=== PATIENT | female | born 1935 | race Caucasian/White ===

== ENCOUNTER 2017-04-19 13:22 | Emergency (ER) | payer MEDICARE ==
[~2017-04-19] VITALS: Ht 157.5 cm; Wt 72.9 kg
[~2017-04-19 13:22] MED LIST: ALBU0.086 INH; ASPI81TA82 PO; CARB100S PO; CEPH500C3 PO; HYDR-2768 PO; LEVO125T3 PO; MEDR4PAK3 PO; MULTCAP13 PO; PERC7.5T13 PO; PRED20 PO; PROC60TA PO; TRAZ50TA4 PO; ULTR50TA PO; VENTAER INH
[2017-04-19 13:30] VITALS: BP 212/96; PULSE 89; RESP 16; TEMP 97.2; O2SAT 92
[2017-04-19] MEDS ORDERED: NIFE60TA8 PO (13:46)
[2017-04-19] MEDS ORDERED: HYDR25TA5 PO (13:46)
[2017-04-19] MEDS ORDERED: ATOR20TA15 PO (13:46)
[2017-04-19] MEDS ORDERED: LEVO.125 PO (13:46)
[2017-04-19] MEDS ORDERED: BENZ100 PO (14:13)
[2017-04-19] MEDS ORDERED: TRAM50 PO (14:14)
--- NOTE | 2017-04-19 14:14 | PD ---
HPI Chief Complaint: Musculoskeletal Complaint Time Seen by Provider: 13:38 Travel History International Travel<30 days: No Contact w/Intl Traveler<30days: No Traveled to known affect area: No History of Present Illness HPI 82-year-old female with history of chronic left hip pain secondary to arthritis presents with increased pain the last 3 days. She denies recent injury or trauma. She reports the pain is similar to previous flares. She denies fever, back pain, bowel or bladder incontinence, or seizure weakness of the extremity. Reports the pain is unrelieved by lidocaine patches and OTC Tylenol Motrin. Symptom severity is moderate. PFSH Past Medical History Anxiety: No Depression: Yes Cardiovascular Problems: No Diminished Hearing: No Hypertension: Yes Immune Disorder: No Implanted Vascular Access Dvce: Yes Musculoskeletal: No Neurologic: No Psychiatric: Yes ("NERVES") Reproductive: No Respiratory: Yes (BRONCHITIS) Thyroid Disease: Yes Influenza Vaccination: No ?: Not Menopausal: Yes Past Surgical History Abdominal Surgery: No Cardiac Surgery: No Ear Surgery: No Endocrine Surgery: No Eye Surgery: No Genitourinary Surgery: Yes (KIDNEY REMOVAL ) Gynecologic Surgery: Yes (5 BIRTHS) Joint Replacement: Yes (BILAT KNEES) Oral Surgery: No Thoracic Surgery: No Other Surgery: Yes Social History Alcohol Use: Yes (OCC) Tobacco Use: No Substance Use: No Allergies-Medications (Allergen,Severity, Reaction): Coded Allergies: erythromycin base (Unverified Allergy, Intermediate, Dehydration, 04/19/17 ) Reported Meds & Prescriptions Reported Meds & Active Scripts Active Ultram (Tramadol HCl) 50 Mg Tab 50 Mg PO Q6H PRN Tessalon Perles (Benzonatate) 100 Mg Cap 100 Mg PO TID PRN 5 Days Reported Atorvastatin (Atorvastatin Calcium) 20 Mg Tab 20 Mg PO HS Nifedipine ER 24 HR (Nifedipine) 60 Mg Tab 1 Tab PO DAILY Hydrochlorothiazide 25 Mg Tab 25 Mg PO DAILY Synthroid (Levothyroxine Sodium) 125 Mcg Tab 125 Mcg PO DAILY Review of Systems General / Constitutional: No: Fever HENT: No: Headaches Cardiovascular: No: Chest Pain or Discomfort Respiratory: No: Shortness of Breath Gastrointestinal: No: Abdominal Pain Genitourinary: No: Dysuria Physical Exam Narrative GENERAL: Well-nourished, well-developed patient. SKIN: Focused skin assessment warm/dry. HEAD: Normocephalic. EYES: No scleral icterus. No injection or drainage. NECK: Supple, trachea midline. No JVD or lymphadenopathy. CARDIOVASCULAR: Regular rate and rhythm without murmurs, gallops, or rubs. RESPIRATORY: Breath sounds equal bilaterally. No accessory muscle use. GASTROINTESTINAL: Abdomen soft, non-tender, nondistended. MUSCULOSKELETAL: Direct pain with palpation over the left lateral hip. The patient has pain with passive flexion of the hip. Minimal discomfort with internal rotation but no pain with external rotation of the right hip. Distal sensation is intact. 2+ dorsalis pedis pulses present bilaterally. No cyanosis , or edema. BACK: No pain with palpation of the right-sided lumbar paraspinal musculature. Cervical, thoracic, lumbar spine nontender. No CVA tenderness. Data Data Last Documented VS Vital Signs Date Time Temp Pulse Resp B/P (MAP) Pulse Ox O2 Delivery O2 Flow Rate FiO2 04/19/17 13:30 97.2 89 16 212/96 (134) 92 Orders Orders Ed Discharge Order (04/19/17 14:15) Ketorolac Inj (Toradol Inj) (04/19/17 14:30) [facility] Medical Decision Making Medical Screen Exam Complete: Yes Emergency Medical Condition: Yes Differential Diagnosis Arthritis, hip sprain/strain, unlikely hip fracture Narrative Course 82 old female with history of chronic pain in both hips presents for increased pain the left hip 3 days. Pain is unrelieved with her usual pain medication regimen of lidocaine patches, Tylenol, Motrin. She denies trauma or injury. She is ambulatory. Her exam is consistent with acute flare of her chronic hip pain likely caused by her arthritis. I Do not suspect fracture. Upon discharge I was asked by family members to evaluate her cough. Patient reports she's had a mild URI for the last several days. She denies fever, chills, chest pain, shortness of breath. She is requesting something for her cough which is keeping her up at night. Diagnosis Primary Impression: Left hip pain Additional Impression: URI (upper respiratory infection) Qualified Codes: J06.9 - Acute upper respiratory infection, unspecified Referrals: Orthopedist Additional Instructions: Take the pain medication as prescribed. Follow-up with your primary doctor for recheck. Return to emergency department if he developed new or worsening symptoms Scripts Tramadol (Ultram) 50 Mg Tab 50 MG PO Q6H Y for PAIN, #12 TAB 0 Refills Prov: Elder Brooke MD 04/19/17 Benzonatate (Tessalon Perles) 100 Mg Cap 100 MG PO TID Y for COUGH for 5 Days, CAP 0 Refills Prov: Ilene Benson 04/19/17 Disposition: 01 DISCHARGE HOME Condition: Stable Ilene Benson Apr 19, 2017 14:14
[2017-04-19] MEDS ORDERED: KETOROLAC TROMETHAMINE 60 MG/2 ML (IM) VIAL IM ONE (14:30)
== END 2017-04-19 14:46 | disposition home or self-care (01) ==
LOC: PHEFT 13:22
DX: M25.552 Pain in left hip (principal); G89.29 Other chronic pain; J06.9 Acute upper respiratory infection, unspecified; I10 Essential (primary) hypertension
CPT/HCPCS: 96372; 99284; J1885

== ENCOUNTER 2017-04-27 13:01 | Inpatient (IN) | payer MEDICARE ==
[~2017-04-27] VITALS: Ht 162.6 cm; Wt 73.6 kg
[2017-04-27] VITALS (9 sets, daily range): BP systolic 120–157; BP diastolic 70–95; PULSE 58–82; RESP 16–20; TEMP 97.6–98; O2SAT 87–99
[~2017-04-27 13:01] MED LIST changes: -ALBU0.086 INH; -ASPI81TA82 PO; +ATOR20TA15 PO; +BENZ100 PO; -CARB100S PO; -CEPH500C3 PO; -HYDR-2768 PO; +HYDR25TA5 PO; +LEVO.125 PO; -LEVO125T3 PO; -MEDR4PAK3 PO; -MULTCAP13 PO; +NIFE60TA8 PO; -PERC7.5T13 PO; -PRED20 PO; -PROC60TA PO; +TRAM50 PO; -TRAZ50TA4 PO; -ULTR50TA PO; -VENTAER INH
--- NOTE | 2017-04-27 13:46 | PD ---
HPI Chief Complaint: Respiratory Distress Time Seen by Provider: 13:46 Travel History International Travel<30 days: No Contact w/Intl Traveler<30days: No Traveled to known affect area: No History of Present Illness HPI 82-year-old female came to the emergency room brought by her daughter with history of shortness of breath that's progressively worsening for past 3 days. Patient also complains of this dry cough. This morning the daughter took her to patient's primary care physician and it was noticed that her oxygen saturation there was 89% on room air. Patient generally does not require oxygen at home. She was given an albuterol nebulizer treatment at the primary care's office and then she was asked to come to the emergency room. Patient denies of any chest pain. As per the patient and her daughter she has history of bronchitis once to twice a year every year and this felt like her bronchitis. No history of fever or chills. Patient does not have history of COPD. She does not have a cable tool operator and never had a coronary artery disease workup in the past. Patient's oxygen saturation in triage was 87% on room air. [facility] Past Medical History Narrative Medical List of her past medical, surgical, social and family history is reviewed from the nursing note. Anxiety: No Depression: Yes Cardiovascular Problems: No Diminished Hearing: No Hypertension: Yes Immune Disorder: No Implanted Vascular Access Dvce: Yes Musculoskeletal: No Neurologic: No Psychiatric: Yes ("NERVES") Reproductive: No Respiratory: Yes (BRONCHITIS) Thyroid Disease: Yes Menopausal: Yes Past Surgical History Abdominal Surgery: No Cardiac Surgery: No Ear Surgery: No Endocrine Surgery: No Eye Surgery: No Genitourinary Surgery: Yes (KIDNEY REMOVAL ) Gynecologic Surgery: Yes (5 BIRTHS) Joint Replacement: Yes (BILAT KNEES) Oral Surgery: No Thoracic Surgery: No Other Surgery: Yes Social History Alcohol Use: Yes (OCC) Tobacco Use: No Substance Use: No Allergies-Medications (Allergen,Severity, Reaction): Coded Allergies: erythromycin base (Verified Allergy, Intermediate, Dehydration, 04/27/17) Comments List of her allergies reviewed from the nursing note. Reported Meds & Prescriptions Reported Meds & Active Scripts Active Reported Atorvastatin (Atorvastatin Calcium) 20 Mg Tab 20 Mg PO HS Hydrochlorothiazide 25 Mg Tab 25 Mg PO DAILY Synthroid (Levothyroxine Sodium) 125 Mcg Tab 125 Mcg PO DAILY Narrative Medication List of her home medications reviewed from the nursing note. Review of Systems Except as stated in HPI: all other systems reviewed are Neg Respiratory: Positive: Cough, Shortness of Breath Physical Exam Narrative GENERAL: Awake, alert, elderly, moderate distress SKIN: Focused skin assessment warm/dry. HEAD: Atraumatic. Normocephalic. EYES: Pupils equal and round. No scleral icterus. No injection or drainage. ENT: No nasal bleeding or discharge. Mucous membranes pink and moist. NECK: Trachea midline. No JVD. CARDIOVASCULAR: Regular rate and rhythm. No murmur appreciated. RESPIRATORY: No accessory muscle use. Coarse rhonchi in the right basilar area GASTROINTESTINAL: Abdomen soft, non-tender, nondistended. Hepatic and splenic margins not palpable. MUSCULOSKELETAL: No obvious deformities. No clubbing. No cyanosis. No edema. NEUROLOGICAL: Awake and alert. No obvious cranial nerve deficits. Motor grossly within normal limits. Normal speech. PSYCHIATRIC: Appropriate mood and affect; insight and judgment normal. Data Data Last Documented VS Vital Signs Date Time Temp Pulse Resp B/P (MAP) Pulse Ox O2 Delivery O2 Flow Rate FiO2 04/27/17 14:31 58 20 141/70 (93) 99 04/27/17 14:23 Nasal Cannula 2.00 04/27/17 13:09 97.6 Orders Orders Complete Blood Count With Diff (04/27/17 14:00) Basic Metabolic Panel (Bmp) (04/27/17 14:00) B-Type Natriuretic Peptide (04/27/17 14:00) Troponin I (04/27/17 14:00) Iv Access Insert/Monitor (04/27/17 14:00) Electrocardiogram (04/27/17 14:00) Ecg Monitoring (04/27/17 14:00) Oximetry (04/27/17 14:00) Oxygen Administration (04/27/17 14:00) Chest, Single Ap (04/27/17 14:00) Sodium Chloride 0.9% Flush (Ns Flush) (04/27/17 14:00) Methylprednisolone So Succ Inj (Solumedr (04/27/17 14:00) Albuterol-Ipratropium Neb (Duoneb Neb) (04/27/17 14:00) Furosemide Inj (Lasix Inj) (04/27/17 15:15) Admit Order (Ed Use Only) (04/27/17 15:25) Labs Laboratory Tests Test 04/27/17 14:20 White Blood Count 10.4 TH/MM3 Red Blood Count 4.21 MIL/MM3 Hemoglobin 12.3 GM/DL Hematocrit 36.4 % Mean Corpuscular Volume 86.4 FL Mean Corpuscular Hemoglobin 29.3 PG Mean Corpuscular Hemoglobin Concent 33.9 % Red Cell Distribution Width 13.2 % Platelet Count 243 TH/MM3 Mean Platelet Volume 8.3 FL Neutrophils (%) (Auto) 73.8 % Lymphocytes (%) (Auto) 14.0 % Monocytes (%) (Auto) 8.5 % Eosinophils (%) (Auto) 2.9 % Basophils (%) (Auto) 0.8 % Neutrophils # (Auto) 7.6 TH/MM3 Lymphocytes # (Auto) 1.5 TH/MM3 Monocytes # (Auto) 0.9 TH/MM3 Eosinophils # (Auto) 0.3 TH/MM3 Basophils # (Auto) 0.1 TH/MM3 CBC Comment DIFF FINAL Differential Comment Blood Urea Nitrogen 29 MG/DL Creatinine 1.60 MG/DL Random Glucose 113 MG/DL Calcium Level 8.6 MG/DL Sodium Level 132 MEQ/L Potassium Level 4.0 MEQ/L Chloride Level 93 MEQ/L Carbon Dioxide Level 33.2 MEQ/L Anion Gap 6 MEQ/L Estimat Glomerular Filtration Rate 31 ML/MIN Troponin I 0.17 NG/ML B-Type Natriuretic Peptide 681 PG/ML MDM Medical Decision Making Medical Screen Exam Complete: Yes Emergency Medical Condition: Yes Medical Record Reviewed: Yes Interpretation(s) Twelve-lead EKG was reviewed by me. Normal sinus rhythm, normal axis, interventricular conduction delay, bradycardia. Heart rate of 58 bpm. Differential Diagnosis Pneumonia, bronchitis, COPD exacerbation, CHF Narrative Course 3:29 PM blood test results of back and patient's troponin and BNP are mildly elevated. Patient has some renal insufficiency as well. Chest x-ray has been read by the radiologist as mild interstitial edema. I had initially given the patient to duo nebs and IV Solu-Medrol. However based on these test results I have ordered for 40 mg of IV Lasix. Patient needs to be evaluated by the cable tool operator. She does not have any active chest pain. However given the hypoxia, congestive heart failure and elevated troponin she should be transferred to the main hospital in case of the cable tool operator chooses to do a catheterization. I discussed this with the hospitalist who agreed. I also discussed this with the patient and her daughter and informed them about the test results. I answered all the questions to the best of my ability. Critical Care Narrative Aggregate critical care time was 30 minutes. Time to perform other separately billable procedures was not included in the critical care time. My time did not include minutes spent treating any other patients simultaneously or on activities that did not directly contribute to the patient's treatment. The services I provided to this patient were to treat and/or prevent clinically significant deterioration that could result in: Hypoxia, respiratory distress, non-STEMI, congestive heart failure I provided critical care services requiring my management, as noted below: Chart data review, documentation time, medication orders and management, vital sign assessments/reviewing monitor data, ordering and reviewing lab tests, ordering and interpreting/reviewing x-rays and diagnostic studies, care of the patient and discussion of the patient with the admitting physicians. Procedures EKG Prior to Arrival: No Diagnosis Primary Impression: Non-STEMI (non-ST elevated myocardial infarction) Additional Impressions: Congestive heart failure Qualified Codes: I50.9 - Heart failure, unspecified Respiratory distress Hypoxia Renal insufficiency Admitting Information Admitting Physician Requests: [place] Prasad MD Apr 27, 2017 13:46
[2017-04-27] MEDS ORDERED: SODIUM CHLORIDE 0.9% FLUSH 10 ML FLUSH IVF PRN (14:00)
[2017-04-27] MEDS ORDERED: methylPREDNISolone SOD SUCC 125 MG/2 ML VIAL IV PUSH ONE (14:00)
[2017-04-27] MEDS: RESP: ALBUTEROL 2.5 MG/IPRATROPIUM 0.5 MG NEB (SCH) INH (14:21)
[2017-04-27 14:33] LABS: AUTOMATED NEUTROPHIL # 7.6 TH/MM3 (1.8-7.7); BASOPHIL # 0.1 TH/MM3 (0-0.2); BASOPHIL % 0.8 % (0.0-2.0); EOSINOPHIL # 0.3 TH/MM3 (0-0.4); EOSINOPHIL % 2.9 % (0.0-4.0); HEMATOCRIT 36.4 % (35.0-46.0); HEMO FLAGS DIFF FINAL; LYMPHOCYTE # 1.5 TH/MM3 (1.0-4.8); MEAN CELL VOLUME 86.4 FL (80.0-100.0); MEAN CORPUSCULAR HEMOGLOBIN 29.3 PG (27.0-34.0); MEAN CORPUSCULAR HGB CONC 33.9 % (32.0-36.0); MONO % 8.5 % (0.0-8.0); NEUT % 73.8 % (16.0-70.0); PLATELET COUNT 243 TH/MM3 (150-450); RED BLOOD COUNT 4.21 MIL/MM3 (4.00-5.30); RED CELL DISTRIBUTION WIDTH 13.2 % (11.6-17.2); WHITE BLOOD COUNT 10.4 TH/MM3 (4.0-11.0)
[2017-04-27 14:45] LABS: BICARBONATE 33.2 MEQ/L (21.0-32.0)
--- NOTE | 2017-04-27 14:53 | RADRPT ---
EXAM DATE/TIME: 04/27/2017 14:37 [facility] COMPARISON: CHEST PA & LAT, April 21, 2015, 17:06. INDICATIONS : Cough and shortness of breath. MEDICAL HISTORY : Hypertension. Afib. SURGICAL HISTORY : Appendectomy. Cholecystectomy. ENCOUNTER: Initial ACUITY: 4 - 6 days PAIN SCORE: 0/10 LOCATION: Bilateral chest FINDINGS: A single portable frontal view the chest shows interstitial prominence in the lungs ilaterally. This is new from the prior study. No intraalveolar opacity. No effusions. Heart is mildly enlarged. No sig nificant pulmonary vascular engorgement observed. A scoliotic and degenerative spine. CONCLUSION: Bilateral interstitial infiltrates with mild cardiomegaly. This could relate to early interstitial pu lmonary edema. Corby Black Jr., MD on April 27, 2017 at 14:47 Board Certified Radiologist. This report was verified electronically.
[2017-04-27] MEDS ORDERED: FUROSEMIDE 40 MG/4 ML VIAL IV PUSH ONE (15:15)
--- NOTE | 2017-04-27 15:54 | HHI.HP ---
HPI Service [facility] Primary Care Physician Rad Zuluaga, DO Admission Diagnosis non-STEMI, CHF, hypoxia Diagnoses: (1) New onset of congestive heart failure (2) Elevated troponin I level (3) Non-STEMI (non-ST elevated myocardial infarction) (4) Renal insufficiency (5) Hypoxia (6) Respiratory distress Chief Complaint: Shortness of breath Travel History International Travel<30 Days: No Contact w/Intl Traveler <30 Da: No Traveled to Known Affected Are: No History of Present Illness 82-year-old female with a history of hypertension, hypothyroidism, presented to the ED for evaluation of worsening symptoms or shortness of breath associated with dry cough without any chest pain since , 04/23/17. Patient was not seen by her PCP until today 04/28/17 when she was found to have oxygen saturation of 89% on room air patient states, despite albuterol nebulizer treatment at her PCP's office she did not have significant improvement and was sent to the ED for further evaluation. Checks x-ray ordered revealed evidence of pulmonary edema with patient having a BNP of 681 and elevated cardiac enzyme of 0.17. She denies any febrile episode, GI bleeding. Review of Systems Except as stated in HPI: all other systems reviewed are Neg Past Family Social History Past Medical History Depression: Yes Hypertension: Yes Respiratory: Yes (BRONCHITIS) Thyroid Disease: Yes History of right trigeminal neuralgia Past Surgical History Genitourinary Surgery: Yes (KIDNEY REMOVAL ) Gynecologic Surgery: Yes (5 BIRTHS) Joint Replacement: Yes (BILAT KNEES) Reported Medications Atorvastatin (Atorvastatin Calcium) 20 Mg Tab 20 Mg PO HS Hydrochlorothiazide 25 Mg Tab 25 Mg PO DAILY Synthroid (Levothyroxine Sodium) 125 Mcg Tab 125 Mcg PO DAILY Allergies: Coded Allergies: erythromycin base (Verified Allergy, Intermediate, Dehydration, 04/27/17) Family History Mother from complication of dementia, had NE when she was alive in her 80s Brothers with diabetes type 2 Social History Alcohol Use: Yes (OCC) Tobacco Use: No Substance Use: No Physical Exam Vital Signs Vital Signs Date Time Temp Pulse Resp B/P (MAP) Pulse Ox O2 Delivery O2 Flow Rate FiO2 04/27/17 14:31 58 20 141/70 (93) 99 04/27/17 14:23 96 04/27/17 14:23 Nasal Cannula 2.00 04/27/17 14:20 99 Nasal Cannula 2.00 04/27/17 13:43 Nasal Cannula 2.00 04/27/17 13:09 97.6 72 20 138/95 (109) 87 Physical Exam GENERAL: This is a well-nourished, well-developed patient, in no apparent distress. SKIN: No rashes, ecchymoses or lesions. Cool and dry. HEAD: Atraumatic. Normocephalic. No temporal or scalp tenderness. EYES: Pupils equal round and reactive. Extraocular motions intact. No scleral icterus. No injection or drainage. ENT: Nose without bleeding, purulent drainage or septal hematoma. Throat without erythema, tonsillar hypertrophy or exudate. Uvula midline. Airway patent. NECK: Trachea midline. No JVD or lymphadenopathy. Supple, nontender, no meningeal signs. CARDIOVASCULAR: Regular rate and rhythm without murmurs, gallops, or rubs. RESPIRATORY: Clear to auscultation. Breath sounds equal bilaterally. + wheezes GASTROINTESTINAL: Abdomen soft, non-tender, nondistended. No hepato-splenomegaly , or palpable masses. No guarding. MUSCULOSKELETAL: Extremities without clubbing, cyanosis, or edema. No joint tenderness, effusion, or edema noted. No calf tenderness. Negative Homans sign bilaterally. NEUROLOGICAL: Awake and alert. Cranial nerves II through XII intact. Motor and sensory grossly within normal limits. Five out of 5 muscle strength in all muscle groups. Normal speech. Laboratory Laboratory Tests Test 04/27/17 14:20 White Blood Count 10.4 Red Blood Count 4.21 Hemoglobin 12.3 Hematocrit 36.4 Mean Corpuscular Volume 86.4 Mean Corpuscular Hemoglobin 29.3 Mean Corpuscular Hemoglobin Concent 33.9 Red Cell Distribution Width 13.2 Platelet Count 243 Mean Platelet Volume 8.3 Neutrophils (%) (Auto) 73.8 Lymphocytes (%) (Auto) 14.0 Monocytes (%) (Auto) 8.5 Eosinophils (%) (Auto) 2.9 Basophils (%) (Auto) 0.8 Neutrophils # (Auto) 7.6 Lymphocytes # (Auto) 1.5 Monocytes # (Auto) 0.9 Eosinophils # (Auto) 0.3 Basophils # (Auto) 0.1 CBC Comment DIFF FINAL Differential Comment Blood Urea Nitrogen 29 Creatinine 1.60 Random Glucose 113 Calcium Level 8.6 Sodium Level 132 Potassium Level 4.0 Chloride Level 93 Carbon Dioxide Level 33.2 Anion Gap 6 Estimat Glomerular Filtration Rate 31 Troponin I 0.17 B-Type Natriuretic Peptide 681 Result Diagram: 04/27/17141904/27/17 142 Caprini VTE Risk Assessment Caprini VTE Risk Assessment: Mod/High Risk (score >= 2) Caprini Risk Assessment Model Point Value = 1 Point Value = 2 Point Value = 3 Point Value = 5 Age 41-60 Minor surgery BMI > 25 kg/m2 Swollen legs Varicose veins or History of unexplained or recurrent spontaneous Oral contraceptives or hormone replacement Sepsis (< 1 month) Serious lung disease, including pneumonia (< 1 month) Abnormal pulmonary function Acute myocardial infarction Congestive heart failure (< 1 month) History of inflammatory bowel disease Medical patient at bed rest Age 61-74 Arthroscopic surgery Major open surgery (> 45 min) Laparoscopic surgery (> 45 min) Malignancy Confined to bed (> 72 hours) Immobilizing plaster cast Central venous access Age >= 75 History of VTE Family history of VTE Factor V Leiden Prothrombin [id number] Lupus anticoagulant Anticardiolipin antibodies Elevated serum homocysteine Heparin-induced thrombocytopenia Other congenital or acquired thrombophilia Stroke (< 1 month) Elective arthroplasty Hip, pelvis, or leg fracture Acute spinal cord injury (< 1 month) Prophylaxis Regimen Total Risk Factor Score Risk Level Prophylaxis Regimen 0-1 Low Early ambulation 2 Moderate Order ONE of the following: *Sequential Compression Device (SCD) *Heparin 5000 units SQ BID 3-4 Higher Order ONE of the following medications: *Heparin 5000 units SQ TID *Enoxaparin/Lovenox 40 mg SQ daily (WT < 150 kg, CrCl > 30 mL/min) *Enoxaparin/Lovenox 30 mg SQ daily (WT < 150 kg, CrCl > 10-29 mL/min) *Enoxaparin/Lovenox 30 mg SQ BID (WT < 150 kg, CrCl > 30 mL/min) AND/OR *Sequential Compression Device (SCD) 5 or more Highest Order ONE of the following medications: *Heparin 5000 units SQ TID (Preferred with Epidurals) *Enoxaparin/Lovenox 40 mg SQ daily (WT < 150 kg, CrCl > 30 mL/min) *Enoxaparin/Lovenox 30 mg SQ daily (WT < 150 kg, CrCl > 10-29 mL/min) *Enoxaparin/Lovenox 30 mg SQ BID (WT < 150 kg, CrCl > 30 mL/min) AND *Sequential Compression Device (SCD) Assessment and Plan Problem List: (1) Elevated troponin I level ICD Code: R74.8 - Abnormal levels of other serum enzymes (2) New onset of congestive heart failure ICD Code: I50.9 - Heart failure, unspecified (3) Renal insufficiency ICD Code: N28.9 - Renal insufficiency Status: Acute (4) Hypoxia ICD Code: R09.02 - Hypoxemia Status: Acute Assessment and Plan 82-year-old female with New onset congestive heart failure Chest x-ray noted and review by me with finding of bilateral interstitial infiltrate with mild thyromegaly. This could relate to early interstitial pulmonary edema BNP of 681 in the presence of elevated troponin I Status post 40 of Lasix IV 1 in ED, start Lasix 20 mg IV every 12 hours, CHF education, strict I's and O's Consult cardiology evaluation for possible left heart catheterization Check 2-D echo Non-ST elevation NE? Cardiomyopathy ACS rule out per protocol with serial cardiac enzyme Elevated cardiac enzyme most likely secondary to CHF Consult cardiology for evaluation for possible left heart catheterization Check 2-D echo Respiratory failure with hypoxemia Treat CHF Start DuoNeb when necessary Maintain oxygen saturation above 92% Chronic kidney disease stage III Patient currently at her baseline Monitor BUN and creatinine Avoid all nephrotoxic drugs History of hypertension Resume oral antihypertensive medication Hypothyroidism Resume Synthroid Hyperlipidemia Resume Lipitor DVT prophylaxis: SCDs Code Status Full code Discussed Condition With Patient, ED physician Physician Certification 2 Midnight Certification Type: Admission for Inpatient Services Order for Inpatient Services The services are ordered in accordance with Medicare regulations or non- Medicare payer requirements, as applicable. In the case of services not specified as inpatient-only, they are appropriately provided as inpatient services in accordance with the 2-midnight benchmark. Estimated LOS (days): 2 days is the estimated time the patient will need to remain in the hospital, assuming treatment plan goals are met and no additional complications. Post-Hospital Plan: Not yet determined Vijay Evans MD Apr 27, 2017 15:53
[2017-04-27] MEDS ORDERED: ONDANSETRON HCL 4 MG/2 ML VIAL IVP PRN (16:15)
[2017-04-27] MEDS ORDERED: NALOXONE HCL 0.4 MG/ML AMP IV PUSH PRN (16:15)
[2017-04-27] MEDS ORDERED: SODIUM CHLORIDE 0.9% FLUSH 10 ML FLUSH IV FLUSH PRN (16:15)
[2017-04-27] MEDS ORDERED: RESP: ALBUTEROL 2.5 MG/IPRATROPIUM 0.5 MG NEB (PRN) NEB (16:15)
[2017-04-27] MEDS ORDERED: ACETAMINOPHEN 325 MG TAB PO PRN ×2 (16:15)
[2017-04-27] MEDS ORDERED: NIFE30TA61 PO (17:02)
[2017-04-27] MEDS ORDERED: SYNT112T PO (17:04)
[2017-04-27 18:53] LABS: BLOOD GAS CARBOXYHEMOGLOBIN 1.6 % (0-4); BLOOD GAS HCO3 31 mmol/L (22-26); BLOOD GAS METHEMOGLOBIN 1.1 % (0-2); BLOOD GAS O2 HGB SATURATION 93 % (90-100); BLOOD GAS OXYGEN CONTENT 16.5 Vol % (12.0-20.0); BLOOD GAS PCO2 48 mmHg (38-42); BLOOD GAS PO2 71 mmHg (61-120); BLOOD GAS TOTAL HGB 12.6 G/DL (12.0-16.0)
[2017-04-27 18:54] LABS: CRITICAL VALUE NO; DRAW SITE LT RADIAL; LITER FLOW 2 L/M; NUMBER OF ARTERIAL PUNCTURES 2; OXYGEN DEVICE NASAL CANNULA; STAT YES; ULNAR PULSE Y
[2017-04-27] MEDS: RESP: ALBUTEROL 2.5 MG/IPRATROPIUM 0.5 MG NEB (SCH) NEB (19:56)
[2017-04-27] MEDS: SODIUM CHLORIDE 0.9% FLUSH 10 ML FLUSH IV FLUSH SCH (21:14)
[2017-04-27] MEDS: ATORVASTATIN 20 MG TAB PO SCH (21:14)
[2017-04-28] VITALS (13 sets, daily range): BP systolic 129–164; BP diastolic 66–80; PULSE 54–80; RESP 16–18; TEMP 97–98.3; O2SAT 94–98
[2017-04-28 03:03] LABS: AUTOMATED NEUTROPHIL # 6.3 TH/MM3 (1.8-7.7); BASOPHIL % 0.3 % (0.0-2.0); HEMATOCRIT 36.4 % (35.0-46.0); HEMO FLAGS DIFF FINAL; LYMPH % 7.2 % (9.0-44.0); LYMPHOCYTE # 0.5 TH/MM3 (1.0-4.8); MEAN CELL VOLUME 86.8 FL (80.0-100.0); MEAN CORPUSCULAR HGB CONC 33.4 % (32.0-36.0); NEUT % 90.5 % (16.0-70.0); PLATELET COUNT 249 TH/MM3 (150-450); RED BLOOD COUNT 4.19 MIL/MM3 (4.00-5.30); RED CELL DISTRIBUTION WIDTH 13.8 % (11.6-17.2); WHITE BLOOD COUNT 6.9 TH/MM3 (4.0-11.0)
[2017-04-28 03:24] LABS: ANION GAP 8 MEQ/L (5-15); AST (GOT) 19 U/L (15-37); BICARBONATE 32.7 MEQ/L (21.0-32.0); BLOOD UREA NITROGEN 31 MG/DL (7-18); CHLORIDE 91 MEQ/L (98-107); GLOMERULAR FILTRATION RATE 32 ML/MIN (>89); POTASSIUM 3.1 MEQ/L (3.5-5.1); SODIUM (NA) 132 MEQ/L (136-145)
[2017-04-28 03:27] LABS: ALKALINE PHOSPHATASE 105 U/L (45-117); ALT (GPT) 25 U/L (10-53); HDL CHOLESTEROL 72.1 MG/DL (40.0-60.0); LDL CHOLESTEROL 43 MG/DL (0-99); TOTAL BILIRUBIN ADULT 0.3 MG/DL (0.2-1.0)
[2017-04-28] MEDS: LEVOTHYROXINE SODIUM 125 MCG TAB PO SCH (06:01)
[2017-04-28] MEDS: RESP: ALBUTEROL 2.5 MG/IPRATROPIUM 0.5 MG NEB (SCH) NEB ×3 (07:35→21:27)
[2017-04-28] MEDS ORDERED: NIFEdipine 30 MG SUSTAINED RELEASE TAB PO SCH (09:00)
[2017-04-28] MEDS: FUROSEMIDE 20 MG/2 ML VIAL IV PUSH SCH ×3 (09:00→18:19)
[2017-04-28] MEDS: POTASSIUM CHLORIDE 20 MEQ CONTROLLED RELEASE TAB PO SCH (09:12)
[2017-04-28] MEDS: ASPIRIN 81 MG CHEW TAB CHEW SCH (09:12)
[2017-04-28] MEDS: SODIUM CHLORIDE 0.9% FLUSH 10 ML FLUSH IV FLUSH SCH ×2 (09:13→21:35)
--- NOTE | 2017-04-28 12:20 | HHI.PR ---
Subjective Remarks Follow-up new onset CHF 04/28/17-patient seen and examined, reports significant improvement or shortness of breath since admission. Denies any chest pain. Daughter by the bedside. Objective Vitals Vital Signs Date Time Temp Pulse Resp B/P (MAP) Pulse Ox O2 Delivery O2 Flow Rate FiO2 04/28/17 07:34 97 Nasal Cannula 2.00 04/28/17 07:00 74 04/28/17 07:00 97.0 74 16 154/78 (103) 94 04/28/17 04:00 58 04/28/17 04:00 98.3 58 16 129/66 (87) 96 04/28/17 02:00 56 04/28/17 00:00 60 04/28/17 00:00 98.2 60 16 139/66 (90) 96 04/27/17 22:00 82 04/27/17 20:00 98.0 60 16 139/70 (93) 96 04/27/17 20:00 72 04/27/17 19:59 95 Nasal Cannula 2.00 04/27/17 18:46 04/27/17 18:11 94 Nasal Cannula 2.00 04/27/17 18:05 79 16 157/75 (102) 94 Nasal Cannula 2.00 04/27/17 16:05 79 16 120/72 (88) 97 Nasal Cannula 2.00 04/27/17 16:05 16 97 Nasal Cannula 2.00 04/27/17 14:31 58 20 141/70 (93) 99 04/27/17 14:23 96 04/27/17 14:23 Nasal Cannula 2.00 04/27/17 14:20 99 Nasal Cannula 2.00 04/27/17 13:43 Nasal Cannula 2.00 04/27/17 13:09 97.6 72 20 138/95 (109) 87 I/O 04/27/17 04/27/17 04/27/17 04/28/17 04/28/17 04/28/17 07:00 15:00 23:00 07:00 15:00 23:00 Intake Total 240 ml Output Total 500 ml Balance -260 ml Intake Oral 240 ml Output Urine Total 500 ml # Bowel Movements 1 Result Diagram: 04/28/17 0250 04/28/17 0250 Imaging Last Impressions Chest X-Ray 04/27/17 1400 Signed Impressions: Service Date/Time: Thursday, April 27, 2017 14:37 - CONCLUSION: Bilateral interstitial infiltrates with mild cardiomegaly. This could relate to early interstitial pulmonary edema. Corby Black Jr., MD Objective Remarks GENERAL: NAD SKIN: Warm and dry. HEAD: Normocephalic. EYES: No scleral icterus. No injection or drainage. NECK: Supple, trachea midline. No JVD or lymphadenopathy. CARDIOVASCULAR: Regular rate and rhythm without murmurs, gallops, or rubs. RESPIRATORY: Breath sounds equal bilaterally. No accessory muscle use. GASTROINTESTINAL: Abdomen soft, non-tender, nondistended. MUSCULOSKELETAL: No cyanosis, or edema. BACK: Nontender without obvious deformity. No CVA tenderness. A/P Problem List: (1) New onset of congestive heart failure ICD Code: I50.9 - Heart failure, unspecified (2) Elevated troponin I level ICD Code: R74.8 - Abnormal levels of other serum enzymes (3) Non-STEMI (non-ST elevated myocardial infarction) ICD Code: I21.4 - Non-ST elevation (NSTEMI) myocardial infarction Status: Acute (4) Renal insufficiency ICD Code: N28.9 - Renal insufficiency Status: Acute (5) Hypoxia ICD Code: R09.02 - Hypoxemia Status: Acute (6) Respiratory distress ICD Code: R06.03 - Acute respiratory distress Status: Acute Assessment and Plan 82-year-old female with New onset congestive heart failure Chest x-ray with finding of bilateral interstitial infiltrate with mild thyromegaly. This could relate to early interstitial pulmonary edema BNP of 681 in the presence of elevated troponin I Currently on Lasix 20 mg IV every 12 hours, CHF education, strict I's and O's Awaiting for cardiology evaluation for possible left heart catheterization 2-D echo pending Non-ST elevation AK? Cardiomyopathy ACS rule out per protocol with serial cardiac enzyme Elevated cardiac enzyme most likely secondary to CHF Awaiting for cardiology for evaluation for possible left heart catheterization 2-D echo pending Respiratory failure with hypoxemia-resolved Treat CHF Continue DuoNeb when necessary Maintain oxygen saturation above 92% Hypokalemia Will give extra 60 mEq of potassium 1 now Hyperglycemia Secondary to treatment with steroid Continue to monitor Chronic kidney disease stage III Patient currently at her baseline Monitor BUN and creatinine Avoid all nephrotoxic drugs History of hypertension Continue oral antihypertensive medication including nifedipine 30 mg daily Hypothyroidism Continue Synthroid Hyperlipidemia Continue Lipitor DVT prophylaxis: Vijay Pittman MD Apr 28, 2017 12:20
[2017-04-28] MEDS ORDERED: POTASSIUM CHLORIDE 10 MEQ CONTROLLED RELEASE TAB PO ONE (12:30)
--- NOTE | 2017-04-28 16:46 | ECHRPT ---
Indication: CHF CONCLUSIONS Normal left ventricular size with upper normal wall thickness. The left ventricular systolic functio n is normal with an estimated ejection fraction of 60%. Left ventricular diastolic function parameters are laura l. Normal wall motion. Trace aortic valve regurgitation. There is mild tricuspid valve regurgitation. The estimated pulmonary arterial pressure is 41 mmHg. BP: 129 / 66 HR: 58 Rhythm: Sinus MEASUREMENTS (Male / Female) Normal Values Technical Quality:Fair 2D ECHO LV Diastolic Diameter PLAX 6.1 cm 4.2 - 5.9 / 3.9 - 5.3 cm LV Systolic Diameter PLAX 3.9 cm IVS Diastolic Thickness 0.9 cm 0.6 - 1.0 / 0.6 - 0.9 cm LVPW Diastolic Thickness 0.9 cm 0.6 - 1.0 / 0.6 - 0.9 cm LV Relative Wall Thickness 0.3 LVOT Diameter 2.2 cm Aortic Root Diameter 3.1 cm LA Systolic Diameter LX 3.8 cm 3.0 - 4.0 / 2.7 - 3.8 cm M-MODE AV Cusp Separation MM 2.0 cm DOPPLER AV Peak Velocity 131.0 cm/s AV Peak Gradient 6.9 mmHg AV Mean Gradient 3.0 mmHg AV Velocity Time Integral 27.4 cm LVOT Peak Velocity 93.2 cm/s LVOT Peak Gradient 3.5 mmHg LVOT Velocity Time Integral 21.2 cm AV Area Cont Eq vti 2.9 cm AV Area Cont Eq pk 2.7 cm Mitral E Point Velocity 88.8 cm/s Mitral A Point Velocity 66.6 cm/s Mitral E to A Ratio 1.3 LV E' Lateral Velocity 7.8 cm/s Mitral E to LV E' Lateral Ratio 11.4 LV E' Septal Velocity 8.5 cm/s Mitral E to LV E' Septal Ratio 10.5 TR Peak Velocity 280.0 cm/s TR Peak Gradient 31.4 mmHg Right Atrial Pressure 10.0 mmHg Pulmonary Artery Systolic Pressu 41.4 mmHg Right Ventricular Systolic Press 41.4 mmHg PV Peak Velocity 74.5 cm/s PV Peak Gradient 2.2 mmHg FINDINGS LEFT VENTRICLE Normal left ventricular size with upper normal wall thickness. The left ventricular systolic functio n is normal with an estimated ejection fraction of 60%. Left ventricular diastolic function parameters are laura l. Normal wall motion. RIGHT VENTRICLE Normal right ventricular size and systolic function. LEFT ATRIUM The left atrial size is upper limits of normal. RIGHT ATRIUM The right atrial size is upper limits of normal. ATRIAL SEPTUM Normal atrial septal thickness without atrial level shunting by limited color doppler interrogation. AORTA The aortic root and proximal ascending aorta are normal in size on limited imaging. MITRAL VALVE Mitral annular calcification is present. AORTIC VALVE Trace aortic valve regurgitation. TRICUSPID VALVE There is mild tricuspid valve regurgitation. The estimated pulmonary arterial pressure is 41 mmHg. PULMONARY VALVE Trivial pulmonary valve regurgitation. VESSELS The inferior vena cava is normal in size. PERICARDIUM No pericardial effusion. Dorian Alvarado MD (Electronically Signed) Final Date:28 April 2017 16:44
--- NOTE | 2017-04-28 17:24 | MB ---
cc: MIKO ANAND M.D. DATE OF CONSULTATION: 04/28/2017 REASON FOR CONSULTATION: Congestive heart failure. HISTORY OF PRESENT ILLNESS The patient is an 82-year-old white female with a history of hypertension, hyperlipidemia, hypothyroidism who was in her usual state of health up until 10 days ago when she began to experience increased shortness of breath and nonproductive cough. She apparently was treated with antibiotics with minimal change in her symptoms. She was found to be hypoxemic on the day of admission and was recommended hospitalization. The patient is somewhat of a poor historian. She somewhat recalls being short of breath the last couple days, but not today. She continues to have a nonproductive cough. The patient denies any chest pains, dizziness, syncope, near-syncope, palpitations, pedal edema, paroxysmal nocturnal dyspnea. PAST MEDICAL HISTORY 1. 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 2. Hypertension 3. Hyperlipidemia. 4. Hypothyroidism. PAST SURGICAL HISTORY 1. Left YAG laser posterior capsulotomy 03/13/2014. 2. Stereotactic radiosurgery to the right trigeminal nerve 09/27/2014. 3. Bilateral knee replacements. CARDIAC MEDICATIONS AT HOME: 1. Atorvastatin 20 mg q.h.s. 2. Hydrochlorothiazide 25 mg daily. Here in hospital she has been placed on: 1. Nifedipine 30 mg p.o. daily. 2. Aspirin 81 mg p.o. daily. 3. Potassium chloride 20 milliequivalents p.o. qd. 4. Furosemide 20 milligrams IV b.i.d. ALLERGIES: ERYTHROMYCIN FAMILY HISTORY: Noncontributory. SOCIAL HISTORY: The patient denies alcohol or tobacco abuse. REVIEW OF SYSTEMS: As in the history of present illness, otherwise negative or noncontributory. She also denies headache, abdominal pain, melena, dyspepsia, bright red blood per rectum, fevers. PHYSICAL EXAMINATION: On physical examination her blood pressure 139/69 with a pulse of 59, respirations 16. GENERAL: She is a well-developed, well-nourished white female in no acute distress. HEENT: Jugular venous pressure is normal. Carotid pulses are 2+ bilaterally and without bruits. CHEST: Examination of the chest reveals clear lung smith. CARDIAC: On cardiac examination she has a regular rhythm and rate without S3-S4 or murmur. ABDOMEN: On abdominal examination she has a soft, nontender abdomen. Bowel sounds are present. There is no definite hepatosplenomegaly. EXTREMITIES: Examination of extremities reveals no clubbing, cyanosis or edema. EKG shows normal sinus rhythm, incomplete left bundle branch block. LABORATORY DATA: Laboratory data includes normal CBC, potassium 3.1, BUN 31, creatinine 1.54, troponin 0.17, total cholesterol 125, LDL 43, HDL 72, triglycerides 52. Chest x-ray: Shows bilateral interstitial infiltrates. IMPRESSION: Possible congestive heart failure in this 82 year-old white female with a history of hypertension, hyperlipidemia, hypothyroidism. Chest x-ray findings are indeed suggestive of interstitial edema. On the other hand, a brief look at her echocardiogram at bedside suggests she has normal left ventricular function with no definite major valvular abnormalities. She may very well have an element of diastolic dysfunction. It appears she has had symptomatic relief from diuresis. With respect to the slightly elevated troponin levels, I doubt they are due to acute coronary syndrome. She also has some renal insufficiency. She has had no chest pain symptoms. EKGs are nondiagnostic due to underlying incomplete left bundle branch block. RECOMMENDATIONS 1. Continue intravenous Lasix diuresis; consider repeating a chest x-ray tomorrow. 2. Will more thoroughly review her echo later today. 3. Consider the addition of a beta jorge, although she does have mild baseline bradycardia. MD JAN Mistry/DWAINE /3:25 PM /4:30 PM YASMIN
--- NOTE | 2017-04-28 17:42 | EKG ---
Date Performed: 04/27/2017 Time Performed: 14:27:48 PTAGE: 82 years EKG: SINUS BRADYCARDIA MODERATE INTRAVENTRICULAR CONDUCTION DELAY Since previous tracing, no sig nificant change noted ABNORMAL ECG PREVIOUS TRACING : 05/22/2014 00.36 DOCTOR: Shaina Castellano Interpretating Date/Time 04/28/2017 17:41:22
--- NOTE | 2017-04-28 17:42 | EKG ---
Date Performed: 04/28/2017 Time Performed: 02:35:52 PTAGE: 82 years EKG: Sinus rhythm Prolonged QT interval Incomplete LBBB Poor R wave progression - probable normal variant Inferior ST elevation - possible early repolarization Since previous tracing, no significant change noted Abnorma l ECG PREVIOUS TRACING : 04/27/2017 20.25 DOCTOR: Shaina Castellano Interpretating Date/Time 04/28/2017 17:42:01
--- NOTE | 2017-04-28 17:42 | EKG ---
Date Performed: 04/27/2017 Time Performed: 20:25:16 PTAGE: 82 years EKG: Sinus rhythm with PVC(s) with PAC(s) Incomplete LBBB Possible inferior infarct - age undetermined QRS changes V3/ V4 may be due to LVH but cannot rule out anterior infarct Lateral T wave changes are nonspecific Sinc e previous tracing, no significant change noted Abnormal ECG PREVIOUS TRACING : 04/27/2017 14.27 DOCTOR: Shaina Castellano Interpretating Date/Time 04/28/2017 17:41:46
[2017-04-28] MEDS ORDERED: CARVEDILOL 3.125 MG TAB PO SCH (21:00)
[2017-04-28] MEDS: ATORVASTATIN 20 MG TAB PO SCH (21:35)
[2017-04-29] VITALS (22 sets, daily range): BP systolic 121–166; BP diastolic 72–95; PULSE 44–93; RESP 16; TEMP 97.3–98.5; O2SAT 94–95
[2017-04-29] MEDS: LEVOTHYROXINE SODIUM 125 MCG TAB PO SCH (06:11)
[2017-04-29 07:15] LABS: BICARBONATE 35.8 MEQ/L (21.0-32.0); POTASSIUM 4.3 MEQ/L (3.5-5.1)
[2017-04-29] MEDS: RESP: ALBUTEROL 2.5 MG/IPRATROPIUM 0.5 MG NEB (SCH) NEB ×2 (07:47→14:00)
--- NOTE | 2017-04-29 08:12 | PD.CARD.PN ---
Subjective Subjective Remarks Denies dyspnea, PND, CP, palpitations, dizziness. Cough resolved. Objective Medications Item Value Date Time Carvedilol 3.125 mg 04/28/17 2100 (Coreg) Q12HR/PO 04/28/172134 Aspirin 81 mg 04/28/17 0900 (Aspirin Chew) DAILY/CHEW 04/28/17911 Potassium Chloride 20 meq 04/28/17 0900 (KCl) DAILY/PO 04/28/17911 Nifedipine 30 mg 04/28/17899 (Procardia Xl) DAILY/PO 04/28/17910 Atorvastatin 20 mg 04/27/172099 Calcium HS/PO 04/28/172134 (Lipitor) Furosemide 20 mg 04/27/17 1800 (Lasix Inj) BID@/IV PUSH 04/28/171818 Current Medications Medications (Trade) Dose Ordered Sig/Omayra Route Start Time Stop Time Status Last Admin (Lipitor) 20 mg HS PO 04/27/17 21:00 04/28/17 21:35 (Synthroid) 125 mcg DAILY@0600 PO 04/28/17 06:00 04/29/17 06:11 (NS Flush) 2 ml BID IV FLUSH 04/27/17 21:00 04/28/17 21:35 (NS Flush) 2 ml UNSCH PRN IV FLUSH 04/27/17 16:15 (Aspirin Chew) 81 mg DAILY CHEW 04/28/17 09:00 04/28/17 09:12 (Lasix Inj) 20 mg BID@09,18 IV PUSH 04/27/17 18:00 04/28/17 18:19 (KCl) 20 meq DAILY PO 04/28/17 09:00 04/28/17 09:12 (Duoneb Neb) 1 ampule Q6HR WHILE AWAKE NEB NEB 04/27/17 20:00 04/29/17 07:47 (Duoneb Neb) 1 ampule Q2HR NEB PRN NEB 04/27/17 16:15 (Tylenol) 650 mg Q4H PRN PO 04/27/17 16:15 (Zofran Inj) 4 mg Q6H PRN IVP 04/27/17 16:15 (Tylenol) 650 mg Q6H PRN PO 04/27/17 16:15 04/29/17 01:58 (Narcan Inj) 0.4 mg UNSCH PRN IV PUSH 04/27/17 16:15 (Procardia Xl) 30 mg DAILY PO 04/28/17 09:00 04/28/17 09:11 (Coreg) 3.125 mg Q12HR PO 04/28/17 21:00 04/28/17 21:35 Vital Signs / I&O Vital Signs Date Time Temp Pulse Resp B/P (MAP) Pulse Ox O2 Delivery O2 Flow Rate FiO2 04/29/17 07:48 94 04/29/17 06:00 46 04/29/17 05:00 57 04/29/17 04:00 56 04/29/17 03:27 14 04/29/17 03:00 97.4 50 16 162/72 (102) 95 04/29/17 03:00 54 04/29/17 02:00 62 04/29/17 01:00 54 04/29/17 00:00 56 04/28/17 23:00 97.8 78 16 164/77 (106) 94 04/28/17 23:00 54 04/28/17 22:00 80 04/28/17 21:29 96 Nasal Cannula 2.00 04/28/17 21:00 64 04/28/17 20:00 68 04/28/17 19:00 68 04/28/17 19:00 97.5 70 16 149/80 (103) 98 04/28/17 16:16 97.9 75 18 137/75 (95) 94 04/28/17 16:16 94 Nasal Cannula 2.00 04/28/17 16:16 75 04/28/17 11:36 97.9 56 16 139/69 (92) 94 04/28/17 11:36 94 Nasal Cannula 2.00 04/28/17 11:36 59 I/O 04/28/17 04/28/17 04/28/17 04/29/17 04/29/17 04/29/17 07:00 15:00 23:00 07:00 15:00 23:00 Intake Total 240 ml 640 ml 720 ml Output Total 500 ml 1300 ml 1650 ml Balance -260 ml -660 ml -930 ml Intake Oral 240 ml 640 ml 720 ml Output Urine Total 500 ml 1300 ml 1650 ml # Bowel Movements 1 0 Physical Exam GENERAL: Well developed, well nourished. No acute distress. HEENT: Jugular venous pressure ~7-8 cm water. CHEST: Lungs clear to auscultation bilaterally. Unlabored respiratory effort. CARDIAC: Regular rate and rhythm without S3, S4, or murmur. ABDOMEN: Soft, nontender, no hepatosplenomegaly. Bowel sounds present. EXTREMITIES: No clubbing, cyanosis, or edema. Laboratory Laboratory Tests Test 04/29/17 05:51 Blood Urea Nitrogen 27 MG/DL Creatinine 1.26 MG/DL Random Glucose 101 MG/DL Calcium Level 8.6 MG/DL Sodium Level 132 MEQ/L Potassium Level 4.3 MEQ/L Chloride Level 92 MEQ/L Carbon Dioxide Level 35.8 MEQ/L Anion Gap 4 MEQ/L Estimat Glomerular Filtration Rate 41 ML/MIN Assessment and Plan Problem List: (1) Congestive heart failure (CHF) ICD Codes: I50.9 - Heart failure, unspecified Plan: Stable overnight. Unremarkable exam this morning. Good diuresis since admission. Echo shows normal LV systolic function. Diastolic function also appears to be normal. No major valvular abnormalities. Precipitating factor for CHF unclear. REC continue beta jorge, optimize BP control change to oral furosemide repeat CXR this afternoon (2) Elevated troponin ICD Codes: R78.89 - Elevated troponin Status: Acute Plan: No other evidence for ACS. Patient also with renal insufficiency likely accounting for at least some of the minimal rise in troponin. Echo unremarkable. Rec no additional evaluation. (3) HTN (hypertension) ICD Codes: I10 - HTN (hypertension) Status: Chronic Plan: Fluctuating BP's, overall suboptimal. Rec increase carvedilol, nifedipine doses. Code Status full code Discussed Condition With patient Problem Qualifiers (1) Congestive heart failure (CHF): Qualified Codes: I50.9 - Heart failure, unspecified (2) HTN (hypertension): Qualified Codes: I10 - Essential (primary) hypertension Dorian Alvarado MD Apr 29, 2017 08:12
[2017-04-29] MEDS ORDERED: FUROSEMIDE 40 MG TAB PO SCH (09:00)
[2017-04-29] MEDS ORDERED: CARVEDILOL 6.25 MG TAB PO SCH (09:00)
[2017-04-29] MEDS ORDERED: NIFEdipine 60 MG SUSTAINED RELEASE TAB PO SCH (09:00)
[2017-04-29] MEDS: ASPIRIN 81 MG CHEW TAB CHEW SCH (10:07)
[2017-04-29] MEDS: POTASSIUM CHLORIDE 20 MEQ CONTROLLED RELEASE TAB PO SCH (10:08)
[2017-04-29] MEDS: SODIUM CHLORIDE 0.9% FLUSH 10 ML FLUSH IV FLUSH SCH (10:08)
--- NOTE | 2017-04-29 12:41 | HHI.PR ---
Subjective Remarks Follow-up new onset CHF 04/28/17-patient seen and examined, reports significant improvement or shortness of breath since admission. Denies any chest pain. Daughter by the bedside. 04/29/17-patient seen and examined, reports significant improvement or shortness of breath. Denies any cough. BP fluctuating Objective Vitals Vital Signs Date Time Temp Pulse Resp B/P (MAP) Pulse Ox O2 Delivery O2 Flow Rate FiO2 04/29/17 12:10 44 04/29/17 11:36 98.5 69 16 121/76 (91) 95 04/29/17 11:00 56 04/29/17 10:00 72 04/29/17 09:00 68 04/29/17 08:41 97.3 55 16 166/95 (118) 95 04/29/17 08:00 54 04/29/17 07:48 94 04/29/17 07:00 49 04/29/17 06:00 46 04/29/17 05:00 57 04/29/17 04:00 56 04/29/17 03:27 14 04/29/17 03:00 97.4 50 16 162/72 (102) 95 04/29/17 03:00 54 04/29/17 02:00 62 04/29/17 01:00 54 04/29/17 00:00 56 04/28/17 23:00 97.8 78 16 164/77 (106) 94 04/28/17 23:00 54 04/28/17 22:00 80 04/28/17 21:29 96 Nasal Cannula 2.00 04/28/17 21:00 64 04/28/17 20:00 68 04/28/17 19:00 68 04/28/17 19:00 97.5 70 16 149/80 (103) 98 04/28/17 16:16 97.9 75 18 137/75 (95) 94 04/28/17 16:16 94 Nasal Cannula 2.00 04/28/17 16:16 75 I/O 04/28/17 04/28/17 04/28/17 04/29/17 04/29/17 04/29/17 07:00 15:00 23:00 07:00 15:00 23:00 Intake Total 240 ml 640 ml 720 ml Output Total 500 ml 1300 ml 1650 ml Balance -260 ml -660 ml -930 ml Intake Oral 240 ml 640 ml 720 ml Output Urine Total 500 ml 1300 ml 1650 ml # Bowel Movements 1 0 Result Diagram: 04/28/17 0250 04/29/17 0551 Imaging Last Impressions Chest X-Ray 04/27/17 1400 Signed Impressions: Service Date/Time: Thursday, April 27, 2017 14:37 - CONCLUSION: Bilateral interstitial infiltrates with mild cardiomegaly. This could relate to early interstitial pulmonary edema. Corby Black Jr., MD Objective Remarks GENERAL: NAD SKIN: Warm and dry. HEAD: Normocephalic. EYES: No scleral icterus. No injection or drainage. NECK: Supple, trachea midline. No JVD or lymphadenopathy. CARDIOVASCULAR: Regular rate and rhythm without murmurs, gallops, or rubs. RESPIRATORY: Breath sounds equal bilaterally. No accessory muscle use. GASTROINTESTINAL: Abdomen soft, non-tender, nondistended. MUSCULOSKELETAL: No cyanosis, or edema. BACK: Nontender without obvious deformity. No CVA tenderness. Procedures none A/P Problem List: (1) New onset of congestive heart failure ICD Code: I50.9 - Heart failure, unspecified (2) Elevated troponin I level ICD Code: R74.8 - Abnormal levels of other serum enzymes (3) Non-STEMI (non-ST elevated myocardial infarction) ICD Code: I21.4 - Non-ST elevation (NSTEMI) myocardial infarction Status: Acute (4) Renal insufficiency ICD Code: N28.9 - Renal insufficiency Status: Acute (5) Hypoxia ICD Code: R09.02 - Hypoxemia Status: Acute (6) Respiratory distress ICD Code: R06.03 - Acute respiratory distress Status: Acute Assessment and Plan 82-year-old female with New onset congestive heart failure Chest x-ray with finding of bilateral interstitial infiltrate with mild thyromegaly. This could relate to early interstitial pulmonary edema BNP of 681 in the presence of elevated troponin I Currently on Lasix 20 mg IV every 12 hours and switch to by mouth, CHF education, strict I's and O's Appreciate input from cardiology 2-D echo with EF 60% Repeat chest x-ray this afternoon 04/29/17 Non-ST elevation ME? Cardiomyopathy ACS rule out per protocol with serial cardiac enzyme Elevated cardiac enzyme most likely secondary to CHF Appreciate input from cardiology 2-D echo with EF of 60% Respiratory failure with hypoxemia-resolved Treat CHF Continue DuoNeb when necessary Maintain oxygen saturation above 92% Hypokalemia Will give extra 60 mEq of potassium 1 now Hyperglycemia Secondary to treatment with steroid Continue to monitor Chronic kidney disease stage III Patient currently at her baseline Monitor BUN and creatinine Avoid all nephrotoxic drugs History of hypertension Labile BP Increase Coreg to 6.25 mg twice a day, nifedipine to 60 mg daily Hypothyroidism Continue Synthroid Hyperlipidemia Continue Lipitor DVT prophylaxis: Vijay Pittman MD Apr 29, 2017 12:41
[2017-04-29] MEDS ORDERED: ATROPINE SULFATE 1 MG/10 ML SYRINGE ONE (14:42)
[2017-04-29] MEDS ORDERED: EPINEPHrine HCL (1:10,000) 1 MG/10 ML SYRINGE ONE (14:42)
--- NOTE | 2017-04-29 14:59 | HHI.FF ---
Face to Face Verification Diagnosis: (1) New onset of congestive heart failure Home Health Nursing Order: Telehealth I have seen patient Dorys Booker on 04/29/17. My clinical findings support the need for the requested home health care services because: Patient has SOB I certify that my clinical findings support that this patient is homebound because: Poor cardiac reserve Vijay Evans MD Apr 29, 2017 14:59
--- NOTE | 2017-04-29 16:25 | RADRPT ---
EXAM DATE/TIME: 04/29/2017 14:54 [facility] COMPARISON: CHEST PA & LAT, April 21, 2015, 17:06. INDICATIONS : Cough and congestion MEDICAL HISTORY : Hypertension. Afib SURGICAL HISTORY : Appendectomy. Cholecystectomy. ENCOUNTER: Initial ACUITY: 4 - 6 days PAIN SCORE: 0/10 LOCATION: chest FINDINGS: PA and lateral views of the chest show stable chronic interstitial changes. Stable scarring within th e lingula. No acute infiltrate or effusion. Heart is normal in size. Bony structures are unremarkable . Cholecystectomy clips. CONCLUSION: No acute disease. Corby Black Jr., MD on April 29, 2017 at 16:23 Board Certified Radiologist. This report was verified electronically.
[2017-04-29] MEDS ORDERED: ASPI81 CHEW (16:39)
[2017-04-29] MEDS ORDERED: FURO40TA PO (16:39)
[2017-04-29] MEDS ORDERED: NIFE60TA8 PO (16:39)
[2017-04-29] MEDS ORDERED: POTA20TA5 PO (16:39)
[2017-04-29] MEDS ORDERED: CARV6.25 PO (16:39)
--- NOTE | 2017-04-29 16:46 | HHI.DS ---
Discharge Summary Admission Date Apr 27, 2017 at 15:26 Discharge Date: Apr 29, 2017 Admitting Diagnosis non-STEMI, CHF, hypoxia (1) New onset of congestive heart failure ICD Code: I50.9 - Heart failure, unspecified (2) Elevated troponin I level ICD Code: R74.8 - Abnormal levels of other serum enzymes (3) Non-STEMI (non-ST elevated myocardial infarction) ICD Code: I21.4 - Non-ST elevation (NSTEMI) myocardial infarction Status: Acute (4) Renal insufficiency ICD Code: N28.9 - Renal insufficiency Status: Acute (5) Hypoxia ICD Code: R09.02 - Hypoxemia Status: Acute (6) Respiratory distress ICD Code: R06.03 - Acute respiratory distress Status: Acute Procedures none Brief History - From Admission 82-year-old female with a history of hypertension, hypothyroidism, presented to the ED for evaluation of worsening symptoms or shortness of breath associated with dry cough without any chest pain since , 04/23/17. Patient was not seen by her PCP until today 04/28/17 when she was found to have oxygen saturation of 89% on room air patient states, despite albuterol nebulizer treatment at her PCP's office she did not have significant improvement and was sent to the ED for further evaluation. Checks x-ray ordered revealed evidence of pulmonary edema with patient having a BNP of 681 and elevated cardiac enzyme of 0.17. She denies any febrile episode, GI bleeding. CBC/BMP: 04/28/17 0250 04/29/17 0551 Significant Findings Laboratory Tests Test 04/27/17 14:20 04/27/17 18:40 04/27/17 22:04 04/28/17 02:50 Neutrophils (%) (Auto) 73.8 % (16.0-70.0) 90.5 % (16.0-70.0) Monocytes (%) (Auto) 8.5 % (0.0-8.0) Blood Urea Nitrogen 29 MG/DL (7-18) 31 MG/DL (7-18) Creatinine 1.60 MG/DL (0.50-1.00) 1.54 MG/DL (0.50-1.00) Random Glucose 113 MG/DL (74-106) 184 MG/DL (74-106) Sodium Level 132 MEQ/L (136-145) 132 MEQ/L (136-145) Chloride Level 93 MEQ/L (98-107) 91 MEQ/L (98-107) Carbon Dioxide Level 33.2 MEQ/L (21.0-32.0) 32.7 MEQ/L (21.0-32.0) Estimat Glomerular Filtration Rate 31 ML/MIN (>89) 32 ML/MIN (>89) Troponin I 0.17 NG/ML (0.02-0.05) 0.14 NG/ML (0.02-0.05) 0.14 NG/ML (0.02-0.05) B-Type Natriuretic Peptide 681 PG/ML (0-100) Blood Gas HCO3 31 mmol/L (22-26) Blood Gas Base Excess 7.0 mmol/L (-2-2) Arterial Blood pH 7.43 (7.380-7.420) Arterial Blood Partial Pressure CO2 48 mmHg (38-42) Lymphocytes (%) (Auto) 7.2 % (9.0-44.0) Lymphocytes # (Auto) 0.5 TH/MM3 (1.0-4.8) Albumin 3.0 GM/DL (3.4-5.0) Calcium Level 8.4 MG/DL (8.5-10.1) Potassium Level 3.1 MEQ/L (3.5-5.1) HDL Cholesterol 72.1 MG/DL (40.0-60.0) Test 04/29/17 05:51 Blood Urea Nitrogen 27 MG/DL (7-18) Creatinine 1.26 MG/DL (0.50-1.00) Sodium Level 132 MEQ/L (136-145) Chloride Level 92 MEQ/L (98-107) Carbon Dioxide Level 35.8 MEQ/L (21.0-32.0) Anion Gap 4 MEQ/L (5-15) Estimat Glomerular Filtration Rate 41 ML/MIN (>89) Imaging Last Impressions Chest X-Ray 04/29/17 1400 Signed Impressions: Service Date/Time: Saturday, April 29, 2017 14:54 - CONCLUSION: No acute disease. Corby Black Jr., MD PE at Discharge GENERAL: NAD SKIN: Warm and dry. HEAD: Normocephalic. EYES: No scleral icterus. No injection or drainage. NECK: Supple, trachea midline. No JVD or lymphadenopathy. CARDIOVASCULAR: Regular rate and rhythm without murmurs, gallops, or rubs. RESPIRATORY: Breath sounds equal bilaterally. No accessory muscle use. GASTROINTESTINAL: Abdomen soft, non-tender, nondistended. MUSCULOSKELETAL: No cyanosis, or edema. BACK: Nontender without obvious deformity. No CVA tenderness. Hospital Course Patient was admitted for new onset congestive heart failure for which cardiology was consulted and patient was started on IV Lasix which was subsequently to PO prior to discharge with significant improvement of symptoms. Patient's oral antihypertensive medications including Nifedipine was increased and she was started on Coreg. DVT and GI prophylaxis were provided.Patient's condition prior to discharge improve and vitals remained stable Pt Condition on Discharge: Stable Discharge Disposition: Disch w/ Home Health Serv Discharge Time: > 30 minutes Discharge Instructions DIET: Follow Instructions for: Heart Healthy Diet Activities you can perform: Regular-No Restrictions Follow up Referrals: Cardiology - 2 Weeks PCP Follow-up - 1 Week New Medications: Aspirin (Tgt Aspirin) 81 Mg Chw 81 MG CHEW DAILY for Prevent Blood Clot, #30 EA 11 Refills Carvedilol (Coreg) 6.25 Mg Tab 6.25 MG PO Q12HR for Blood Pressure Management, #60 TAB 11 Refills Furosemide (Furosemide) 40 Mg Tab 40 MG PO DAILY for Prevent Heart Failure, #30 TAB 11 Refills Nifedipine ER 24 HR (Nifedipine ER 24 HR) 60 Mg Tab 60 MG PO DAILY for Blood Pressure Management, #60 TAB 11 Refills Potassium Chloride Microencaps (Potassium Chloride Microencaps) 20 Meq Tab 20 MEQ PO DAILY for Electrolyte Replacement, #30 TAB 11 Refills Continued Medications: Atorvastatin (Atorvastatin) 20 Mg Tab 20 MG PO HS for Cholesterol Management, #30 TAB 0 Refills Levothyroxine (Synthroid) 112 Mcg Tab 112 MCG PO DAILY for Thyroid, #30 TAB 0 Refills Discontinued Medications: Hydrochlorothiazide (Hydrochlorothiazide) 25 Mg Tab 25 MG PO DAILY, #30 TAB 0 Refills Nifedipine ER 24 HR (Nifedipine ER 24 HR) 30 Mg Tab 30 MG PO DAILY, #30 TAB 0 Refills Vijay Evans MD Apr 29, 2017 16:46
== END 2017-04-29 18:16 | disposition home health service (06) | DRG 291 ==
LOC: PHED 13:01 → PHEDA 15:26 → HCIS 19:34
PROVIDERS: ADMIT Hospitalist; ATTEND Hospitalist
DX: I13.0 Hypertensive heart and chronic kidney disease with heart failure and stage 1 through stage 4 chronic kidney disease, or unspecified chronic kidney disease (principal); J96.91 Respiratory failure, unspecified with hypoxia; I42.9 Cardiomyopathy, unspecified; I50.9 Heart failure, unspecified; F32.9 Major depressive disorder, single episode, unspecified; J40 Bronchitis, not specified as acute or chronic; E03.9 Hypothyroidism, unspecified; N18.3 Chronic kidney disease, stage 3 (moderate); E78.5 Hyperlipidemia, unspecified; Z96.653 Presence of artificial knee joint, bilateral; I44.7 Left bundle-branch block, unspecified; R00.1 Bradycardia, unspecified; E87.6 Hypokalemia; R73.9 Hyperglycemia, unspecified
CPT/HCPCS: 36600; 71010; 71020; 80048; 80053; 80061; 82550; 82805; 83880; 84484; 85025; 93005; 93306; 94640; 94664; 96374; J0171; J0461; J1940; J2930

== ENCOUNTER 2017-07-02 09:17 | Emergency (ER) | payer MEDICARE ==
[~2017-07-02] VITALS: Ht 162.6 cm; Wt 70.2 kg
[~2017-07-02 09:17] MED LIST changes: +ASPI81 CHEW; -BENZ100 PO; +CARV6.25 PO; +FURO40TA PO; -HYDR25TA5 PO; -LEVO.125 PO; +POTA20TA5 PO; +SYNT112T PO; -TRAM50 PO
[2017-07-02 09:22] VITALS: BP 140/68; PULSE 78; RESP 16; TEMP 98.5; O2SAT 95
--- NOTE | 2017-07-02 10:25 | RADRPT ---
EXAM DATE/TIME: 07/02/2017 10:05 [facility] COMPARISON: CT BRAIN W/O CONTRAST, May 21, 2014, 12:05. INDICATIONS : Trauma. Fell on tile floor yesterday. Bilateral periorbital bruising. Pain and swelling around nos e. RADIATION DOSE: 70.31 CTDIvol (mGy) MEDICAL HISTORY : Hypertension. Renal cell carcinoma. SURGICAL HISTORY : Nephrectomy, left. Appendectomy. Cholecystectomy. ENCOUNTER: Initial ACUITY: 1 day PAIN SCALE: 0/10 LOCATION: cranial TECHNIQUE: Multiple contiguous axial images were obtained of the head. Using automated exposure control and adj ustment of the mA and/or kV according to patient size, radiation dose was kept as low as reasonably a chievable to obtain optimal diagnostic quality images. DICOM format image data is available electro nically for review and comparison. FINDINGS: CEREBRUM: The ventricles are normal for age. No evidence of midline shift, mass lesion, hemorrhage or acute in farction. No extra-axial fluid collections are seen. POSTERIOR FOSSA: The cerebellum and brainstem are intact. The 4th ventricle is midline. The cerebellopontine angle i s unremarkable. EXTRACRANIAL: The visualized portion of the orbits is intact. SKULL: The calvaria is intact. No evidence of skull fracture. CONCLUSION: Negative trauma CT with no evidence of hemorrhage or mass effect. Deshawn Green MD on July 02, 2017 at 10:20 Board Certified Radiologist. This report was verified electronically.
--- NOTE | 2017-07-02 10:25 | PD ---
HPI Chief Complaint: Fall Time Seen by Provider: 09:44 Travel History International Travel<30 days: No Contact w/Intl Traveler<30days: No Traveled to known affect area: No History of Present Illness HPI 82 year old female brought to ED with daughter at bedside for evaluation s/p fall yesterday while on vacation. She states that she was walking wearing tennis shoes her left foot got caught on something when she fell forward and hit her face on the ground. She tried to catch herself with her left hand and also hit on right rib on the ground. She denies any LOC and was able to get up after the fall and walk herself. Her nose was bleeding after the fall however resolved shortly. The patient felt stable and flew back home with no acute events. She is now complaining of bilateral bruising to her checks and tenderness to her nasal bone, pain under her right breathe which worsens with deep inspiration and bruising to the left hand. She has been acting her normal self per daughter with no changes in speech or behavior. She denies any visual changes or headaches. She is not anticoagulated. Risk Factors:[None] Modifying Factors: Worse with movements Associated sign and symptoms: Bruising and tenderness to bilateral cheeks and nasal bone, tenderness to anterior right rib, bruising to left hand. PFSH Past Medical History Anxiety: No Depression: Yes Cancer: No Cardiovascular Problems: No High Cholesterol: Yes Diminished Hearing: No Hypertension: Yes Immune Disorder: No Implanted Vascular Access Dvce: Yes Musculoskeletal: No Neurologic: No Psychiatric: Yes ("NERVES") Reproductive: No Respiratory: Yes (BRONCHITIS) Thyroid Disease: Yes ?: Not Menopausal: Yes Past Surgical History Abdominal Surgery: No Cardiac Surgery: No Ear Surgery: No Endocrine Surgery: No Eye Surgery: No Genitourinary Surgery: Yes (KIDNEY REMOVAL ) Gynecologic Surgery: Yes (5 BIRTHS) Joint Replacement: Yes (BILAT KNEES) Oral Surgery: No Thoracic Surgery: No Other Surgery: Yes (GALLBLADDER, APPENDIX) Social History Alcohol Use: Yes (OCCASIONAL) Tobacco Use: No Substance Use: No Allergies-Medications (Allergen,Severity, Reaction): Coded Allergies: erythromycin base (Verified Allergy, Intermediate, Dehydration, 07/02/17) Reported Meds & Prescriptions Reported Meds & Active Scripts Active Tgt Aspirin (Aspirin) 81 Mg Chw 81 Mg CHEW DAILY Nifedipine ER 24 HR (Nifedipine) 60 Mg Tab 60 Mg PO DAILY Reported Synthroid (Levothyroxine Sodium) 112 Mcg Tab 112 Mcg PO DAILY Review of Systems Except as stated in HPI: all other systems reviewed are Neg Physical Exam Narrative GENERAL: Pleasant elderly appearing women, no acute distress. Awake and oriented 3. SKIN: Warm and dry. HEAD: Bruising along zygomatic processes bilaterally, no obvious fractures. Pain to palpation to nasal bone. EYES: Pupils equal and round, EOMI PERRL bilaterally. No scleral icterus. No injection or drainage. ENT: No active nasal bleeding or discharge. Dry blood in right nare. Mucous membranes pink and moist. NECK: Trachea midline. No JVD. No C/T/L spine tenderness, no step offs, full ROM to neck. Supple. CARDIOVASCULAR: Regular rate and rhythm. CHEST: Tender to palpation of the right lower rib area in the mid clavicular line deformity or crepitance. No retractions or use of accessory muscles. RESPIRATORY: No accessory muscle use. Clear to auscultation. Breath sounds equal bilaterally. GASTROINTESTINAL: Abdomen soft, non-tender, nondistended. Hepatic and splenic margins not palpable. MUSCULOSKELETAL: Extremities without clubbing, cyanosis, or edema. Tenderness to palpation to anterior chest wall under right breast, no bruising. Mild bruising to volar aspect of left hand with no TTP. Full ROM to left wrist and digits, normal strength, normal sensation. Pelvis: Stable and nontender to palpation. NEUROLOGICAL: Awake and alert. No obvious cranial nerve deficits. Motor grossly within normal limits. Five out of 5 muscle strength in the arms and legs. Normal speech. PSYCHIATRIC: Appropriate mood and affect; insight and judgment normal. Data Data Last Documented VS Vital Signs Date Time Temp Pulse Resp B/P (MAP) Pulse Ox O2 Delivery O2 Flow Rate FiO2 07/02/17 09:22 98.5 78 16 140/68 (92) [address] Brain W/O Iv Contrast(Rout) (07/02/17 09:44) Ribs, Uni (W/Exp Cxr-Min 3vw) (07/02/17 09:44) Ct Facial Bones W/O Iv Cont (07/02/17 09:44) Wrist, Complete ([id number]) (07/02/17 09:44) Ed Discharge Order (07/02/17 10:48) MDM Medical Decision Making Medical Screen Exam Complete: Yes Emergency Medical Condition: Yes Medical Record Reviewed: Yes Interpretation(s) Last 24 hours Impressions Wrist X-Ray 07/02/17943 Signed Impressions: Service Date/Time: July 10:14 - CONCLUSION: Soft tissue swelling without fracture. Vijay Villalta MD Maxillofacial CT 07/02/1744 Signed Impressions: Service Date/Time: July 10:05 - CONCLUSION: 1. Periorbital soft tissue swelling. 2. No facial fracture. 3. Scattered ethmoid sinus disease. Vijay Villalta MD Head CT 07/02/1744 Signed Impressions: Service Date/Time: July 10:05 - CONCLUSION: Negative trauma CT with no evidence of hemorrhage or mass effect. Deshawn Green MD Differential Diagnosis Intracranial injuries versus skull fractures versus rib fractures versus wrist fracture versus contusions versus strain Narrative Course X-rays and CAT scans did not reveal any signs of acute injuries. At this point , my plan would be to release her with follow-up to primary care physician as needed. Return for worsening in pain, or new symptoms. The plan has been discussed with her and she states understanding. Diagnosis Primary Impression: Contusion of rib on right side Additional Impressions: Facial contusion Contusion of left wrist Med/Other Pt SpecificInfo: Prescription(s) given Scripts Tramadol (Tramadol) 50 Mg Tab 50 MG PO Q6H Y for PAIN, #15 TAB 0 Refills Prov: Graciela Matt MD 07/02/17 Disposition: 01 DISCHARGE HOME Condition: Stable Graciela Matt MD Jul 02, 2017 10:25
--- NOTE | 2017-07-02 10:27 | RADRPT ---
EXAM DATE/TIME: 07/02/2017 10:05 [facility] COMPARISON: No previous studies available for comparison. INDICATIONS : Trauma. Fell on tile floor yesterday. Bilateral periorbital bruising. Pain and swelling around nos e. RADIATION DOSE: 34.76 CTDIvol (mGy) MEDICAL HISTORY : Hypertension. Renal cell carcinoma. SURGICAL HISTORY : Nephrectomy, left. Appendectomy.Cholecystectomy. ENCOUNTER: Initial ACUITY: 1 day PAIN SCORE: 8/10 LOCATION: facial TECHNIQUE: Volumetric scanning of the facial bones was performed. Using automated exposure control and adjustme nt of the mA and/or kV according to patient size, radiation dose was kept as low as reasonably achiev able to obtain optimal diagnostic quality images. DICOM format image data is available electronicall y for review and comparison. FINDINGS: ORBITS: The orbital and infraorbital osseous structures are intact. The retroconal structures have a normal configuration. No radiopaque foreign bodies are seen. NASAL BONE: The nasal bone and maxillary spine are intact ZYGOMATIC ARCHES: Symmetric without evidence of fracture. SINUSES: The maxillary and frontal sinuses are intact. Ethmoid sinus disease bilaterally. No air-fluid levels seen. NASAL CAVITY: The nasal septum is intact and midline. The lacrimal ducts are intact. SOFT TISSUES: No radiopaque foreign bodies seen. Periorbital soft-tissue swelling is seen. INTRACRANIAL: No intracranial air seen. CRIBIFORM PLATE: Grossly intact. CONCLUSION: 1. Periorbital soft tissue swelling. 2. No facial fracture. 3. Scattered ethmoid sinus disease. Vijay Villalta MD on July 02, 2017 at 10:21 Board Certified Radiologist. This report was verified electronically.
--- NOTE | 2017-07-02 10:39 | RADRPT ---
EXAM DATE/TIME: 07/02/2017 10:14 [facility] COMPARISON: No previous studies available for comparison. INDICATIONS : Fall, Left lateral wrist pain. MEDICAL HISTORY : Hypertension. Renal cell carcinoma. SURGICAL HISTORY : Nephrectomy, left. Appendectomy. Cholecystectomy ENCOUNTER: Initial ACUITY: 2 days PAIN SCORE: 5/10 LOCATION: Left lateral wrist FINDINGS: Three view examination of the left wrist demonstrates soft tissue swelling without dislocation, or fr acture. The carpal bones are in normal alignment. The joint spaces are maintained. Bony mineraliza tion is normal. CONCLUSION: Soft tissue swelling without fracture. Vijay Villalta MD on July 02, 2017 at 10:34 Board Certified Radiologist. This report was verified electronically.
--- NOTE | 2017-07-02 10:42 | RADRPT ---
EXAM DATE/TIME: 07/02/2017 10:14 [facility] COMPARISON: CHEST PA & LAT, April 29, 2017, 14:54. INDICATIONS : Fall, right rib pain under breast. MEDICAL HISTORY : Hypertension. Renal cell carcinoma SURGICAL HISTORY : Nephrectomy, left. Appendectomy. Cholecystectomy ENCOUNTER: Initial ACUITY: 2 days PAIN SCORE: 8/10 LOCATION: Right ribs FINDINGS: Multiple views of the right ribs were performed. There is no evidence of displaced fracture. No carley tructive lesions or areas of periosteal thickening are seen. Expiratory view of the chest is negativ e for pneumothorax. The mediastinal structures are midline. CONCLUSION: No acute disease. Corby Black Jr., MD on July 02, 2017 at 10:32 Board Certified Radiologist. This report was verified electronically.
[2017-07-02] MEDS ORDERED: TRAM50TA PO (10:52)
== END 2017-07-02 11:01 | disposition home or self-care (01) ==
LOC: PHED 09:17
DX: S20.211A Contusion of right front wall of thorax, initial encounter (principal); S00.83XA Contusion of other part of head, initial encounter; S60.212A Contusion of left wrist, initial encounter; W01.0XXA Fall on same level from slipping, tripping and stumbling without subsequent striking against object, initial encounter; I10 Essential (primary) hypertension; F32.9 Major depressive disorder, single episode, unspecified; E78.00 Pure hypercholesterolemia, unspecified; Z79.82 Long term (current) use of aspirin
CPT/HCPCS: 70450; 70486; 71101; 73110; 99284